=== PATIENT | male | born 1965 | race Caucasian/White ===

== ENCOUNTER 2017-05-21 09:20 | Emergency (ER) | payer SELFPAY ==
--- NOTE | 2017-05-21 09:46 | EDM.PDOC ---
ED HPI GENERAL MEDICAL PROBLEM - General Chief Complaint: Back Pain or Injury Stated Complaint: BACK PAIN FROM FALL Time Seen by Provider: 05/21/17 09:44 Source of Information: Reports: Patient - History of Present Illness INITIAL COMMENTS - FREE TEXT/NARRATIVE: HISTORY AND PHYSICAL: History of present illness: []Patient had a recent fall off of the latter, his head was at a height of 5 feet, his feet were on the first or second rung of the latter he fell back landing on his bottom denies head injury or loss of consciousness incident occurred 3 days prior back pain is rated 4 out of 10 nonradiating no footdrop or saddle anesthesia no bowel or urine symptoms Wrist pain unaffected above the wrist mildly tender over radial side full range of motion strength 5 out of 5 no redness warmth swelling no open lesion or bruise no snuffbox tenderness entire limb neurovascularly intact No fever nausea vomiting chills sweats no chest pain shortness breath headache dizziness or palpitation no bowel or urine symptoms Review of systems: As per history of present illness and below otherwise all systems reviewed and negative. Past medical history: As per history of present illness and as reviewed below otherwise noncontributory. Surgical history: As per history of present illness and as reviewed below otherwise noncontributory. Social history: No reported history of drug or alcohol abuse. Family history: As per history of present illness and as reviewed below otherwise noncontributory. Physical exam: HEENT: Atraumatic, normocephalic, pupils reactive, negative for conjunctival pallor or scleral icterus, mucous membranes moist, throat clear, neck supple, nontender, trachea midline. Lungs: Clear to auscultation, breath sounds equal bilaterally, chest nontender. Heart: S1S2, regular, negative for clicks, rubs, or JVD. Abdomen: Soft, nondistended, nontender. Negative for masses or hepatosplenomegaly. Negative for costovertebral tenderness. Pelvis: Stable nontender. Genitourinary: Deferred. Rectal: Deferred. Extremities: Atraumatic, negative for cords or calf pain. Neurovascular unremarkable. Neuro: Awake, alert, oriented. Cranial nerves II through XII unremarkable. Cerebellum unremarkable. Motor and sensory unremarkable throughout. Exam nonfocal. Diagnostics: []Right wrist complete Lumbar spine Therapeutics: Splint for wrist []Cataflam 50 mg by mouth 3 times a day #30 no refill Flexeril 10 mg by mouth 3 times a day when necessary #30 no refill Ice or heat whichever gains most benefit Follow-up with primary care in 2 weeks Impression: []Back pain/muscle spasm contusion Mild right wrist discomfort/sprain Definitive disposition and diagnosis as appropriate pending reevaluation and review of above. Right Lower Back Pain Score (Numeric/FACES): 8 - Related Data Allergies Allergy/AdvReac Type Severity Reaction Status Date / Time No Known Allergies Allergy Verified 03/26/15 23:06 Home Meds: Home Meds Lisinopril [Prinivil] 10 mg DAILY 05/21/17 [History] Past Medical History - Past Health History Medical/Surgical History: Denies Medical/Surgical History Cardiovascular History: Reports: Hypertension Social & Family History - Tobacco Use Smoking Status *Q: Never Smoker Second Hand Smoke Exposure: No - Caffeine Use Caffeine Use: Reports: Coffee - Recreational Drug Use Recreational Drug Use: No ED ROS GENERAL - Review of Systems Review Of Systems: ROS reveals no pertinent complaints other than HPI. ED EXAM, GENERAL - Physical Exam Exam: See Below Course - Vital Signs Last Recorded V/S: Last Vital Signs Temp 36.5 C 05/21/17 09:36 Pulse 79 05/21/17 09:36 Resp 18 05/21/17 09:36 BP 163/96 H 05/21/17 09:36 Pulse Ox 95 05/21/17 09:36 Departure - Departure Time of Disposition: 10:41 Disposition: Home, Self-Care 01 Condition: Good Clinical Impression: Spasm of lumbar paraspinous muscle, Wrist sprain - Discharge Information Referrals: PCP,None [Primary Care Provider] - Forms: ED Department Discharge Additional Instructions: Medications as prescribed Return if symptoms persist or worsen Heat or ice whichever gains most benefit 20 minute intervals 3 times daily Follow-up with primary care in 2 weeks for recheck The following information is given to patients seen in the emergency department who are being discharged to home. This information is to outline your options for follow-up care. We provide all patients seen in our emergency department with a follow-up referral. The need for follow-up, as well as the timing and circumstances, are variable depending upon the specifics of your emergency department visit. If you don't have a primary care physician on staff, we will provide you with a referral. We always advise you to contact your personal physician following an emergency department visit to inform them of the circumstance of the visit and for follow-up with them and/or the need for any referrals to a consulting specialist. The emergency department will also refer you to a specialist when appropriate. This referral assures that you have the opportunity for follow-up care with a specialist. All of these measure are taken in an effort to provide you with optimal care, which includes your follow-up. Under all circumstances we always encourage you to contact your private physician who remains a resource for coordinating your care. When calling for follow-up care, please make the office aware that this follow-up is from your recent emergency room visit. If for any reason you are refused follow-up, please contact the [facility] emergency department at and asked to speak to the emergency department charge nurse.
--- NOTE | 2017-05-21 10:29 | CR ---
EXAMINATION: Lumbar spine HISTORY: Pain COMPARISON: None TECHNIQUE: AP and lateral views FINDINGS: The lumbar spinal alignment is normal. The vertebral body heights and disc spaces appear w ell-maintained. There is no fracture or dislocation. The SI joints are symmetric. Early marginal ost eophytes are noted. IMPRESSION: Mild degenerative changes without acute findings.
--- NOTE | 2017-05-21 10:31 | CR ---
EXAMINATION: Right wrist HISTORY: Pain COMPARISON: None TECHNIQUE: 3 views FINDINGS/IMPRESSION: There is no acute osseous abnormality, dislocation, or fracture. Bone mineraliz ation and joint spaces appear normal. The radiocarpal alignment is preserved.
[2017-05-21 10:56] VITALS: BP 159/100
== END 2017-05-21 10:52 | disposition home or self-care (01) ==
LOC: MW.ED 09:20
DX: S63.501A Unspecified sprain of right wrist, initial encounter (principal); M62.830 Muscle spasm of back; W11.XXXA Fall on and from ladder, initial encounter; I10 Essential (primary) hypertension; Z79.899 Other long term (current) drug therapy
CPT/HCPCS: 72100; 72100-26; 73110-26-RT; 73110-RT; 99282; 99283

== ENCOUNTER 2017-06-06 10:50 | Emergency (ER) | payer SELFPAY ==
--- NOTE | 2017-06-06 11:17 | EDM.PDOC ---
ED HPI GENERAL MEDICAL PROBLEM - General Chief Complaint: Back Pain or Injury Stated Complaint: BACK PAIN Time Seen by Provider: 06/06/17 11:05 Source of Information: Reports: Patient History Limitations: Reports: No Limitations - History of Present Illness INITIAL COMMENTS - FREE TEXT/NARRATIVE: History of present illness: []Patient fell off a ladder couple weeks ago and was seen in the ER with negative x-rays. His pain has been getting better however he is concerned because his pain is still present and waxes and wanes today today. He denies any numbness or tingling or radiating pain and he has not had any new injuries. Review of systems: As per history of present illness and below otherwise all systems reviewed and negative. Past medical history: As per history of present illness and as reviewed below otherwise noncontributory. Surgical history: As per history of present illness and as reviewed below otherwise noncontributory. Social history: No reported history of drug or alcohol abuse. Family history: As per history of present illness and as reviewed below otherwise noncontributory. Physical exam: General: Well developed, well nourished in NAD HEENT: Atraumatic, normocephalic, pupils reactive, negative for conjunctival pallor or scleral icterus, mucous membranes moist, throat clear, neck supple, nontender, trachea midline. Lungs: Clear to auscultation, breath sounds equal bilaterally, chest nontender. Heart: S1S2, regular, negative for clicks, rubs, or JVD. Abdomen: Soft, nondistended, nontender. Negative for masses or hepatosplenomegaly. Negative for costovertebral tenderness. Pelvis: Stable nontender. Genitourinary: Deferred. Rectal: Deferred. Extremities: Atraumatic, negative for cords or calf pain. Neurovascular unremarkable. Neuro: Awake, alert, oriented. Cranial nerves II through XII unremarkable. Cerebellum unremarkable. Motor and sensory unremarkable throughout. Exam nonfocal. Diagnostics: [] Therapeutics: [] Impression: []Low back strain Plan: []Motrin and/or Tylenol continue to use ice and heat. Continue to walk as much as possible. He may go back to work on light duty Definitive disposition and diagnosis as appropriate pending reevaluation and review of above. - Related Data Allergies Allergy/AdvReac Type Severity Reaction Status Date / Time No Known Allergies Allergy Verified 03/26/15 23:06 Home Meds: Home Meds Lisinopril [Prinivil] 10 mg DAILY 05/21/17 [History] Past Medical History - Past Health History Medical/Surgical History: Denies Medical/Surgical History Cardiovascular History: Reports: Hypertension Social & Family History - Tobacco Use Smoking Status *Q: Never Smoker Second Hand Smoke Exposure: No - Caffeine Use Caffeine Use: Reports: Coffee - Recreational Drug Use Recreational Drug Use: No ED ROS GENERAL - Review of Systems Review Of Systems: See Below (See history of present illness) ED EXAM,LOWER BACK PAIN/INJURY - Physical Exam Exam: See Below (See history of present illness) Departure - Departure Time of Disposition: 11:15 Disposition: Home, Self-Care 01 Condition: Good Clinical Impression: Low back strain Qualifiers: Encounter type: subsequent encounter Qualified Code(s): S39.012D - Strain of muscle, fascia and tendon of lower back, subsequent encounter - Discharge Information Forms: ED Department Discharge Additional Instructions: The following information is given to patients seen in the emergency department who are being discharged to home. This information is to outline your options for follow-up care. We provide all patients seen in our emergency department with a follow-up referral. The need for follow-up, as well as the timing and circumstances, are variable depending upon the specifics of your emergency department visit. If you don't have a primary care physician on staff, we will provide you with a referral. We always advise you to contact your personal physician following an emergency department visit to inform them of the circumstance of the visit and for follow-up with them and/or the need for any referrals to a consulting specialist. The emergency department will also refer you to a specialist when appropriate. This referral assures that you have the opportunity for follow-up care with a specialist. All of these measure are taken in an effort to provide you with optimal care, which includes your follow-up. Under all circumstances we always encourage you to contact your private physician who remains a resource for coordinating your care. When calling for follow-up care, please make the office aware that this follow-up is from your recent emergency room visit. If for any reason you are refused follow-up, please contact the [facility] Emergency Department at and asked to speak to the emergency department charge nurse. Continue Motrin and/or Tylenol with ice and heat. [facility] [address] [id number]
[2017-06-06 12:54] VITALS: BP 121/85
== END 2017-06-06 11:30 | disposition home or self-care (01) ==
LOC: MW.ED 10:50
DX: S39.012D Strain of muscle, fascia and tendon of lower back, subsequent encounter (principal); I10 Essential (primary) hypertension; Z79.899 Other long term (current) drug therapy; W11.XXXD Fall on and from ladder, subsequent encounter
CPT/HCPCS: 99282

== ENCOUNTER 2017-11-02 17:25 | Emergency (ER) | payer SELFPAY ==
--- NOTE | 2017-11-02 18:23 | EDM.PDOC ---
ED HPI GENERAL MEDICAL PROBLEM - General Chief Complaint: Cardiovascular Problem Stated Complaint: BP ISSUES,OUT OF MEDICATION Time Seen by Provider: 11/02/17 18:21 Source of Information: Reports: Patient History Limitations: Reports: No Limitations - History of Present Illness INITIAL COMMENTS - FREE TEXT/NARRATIVE: History of present illness: []Patient has a history of high blood pressure and ran out of his lisinopril 3 days ago. He started hearing ringing in his ears was not able to check her blood pressure. He does not have a doctor here locally as requesting a med refill. He denies any chest pain, shortness of breath, headache, visual changes or dizziness. Patient's vital signs here are stable Review of systems: As per history of present illness and below otherwise all systems reviewed and negative. Past medical history: As per history of present illness and as reviewed below otherwise noncontributory. Surgical history: As per history of present illness and as reviewed below otherwise noncontributory. Social history: No reported history of drug or alcohol abuse. Family history: As per history of present illness and as reviewed below otherwise noncontributory. Physical exam: General: Well developed, well nourished in NAD HEENT: Atraumatic, normocephalic, pupils reactive, negative for conjunctival pallor or scleral icterus, mucous membranes moist, throat clear, neck supple, nontender, trachea midline. Lungs: Clear to auscultation, breath sounds equal bilaterally, chest nontender. Heart: S1S2, regular, negative for clicks, rubs, or JVD. Abdomen: Soft, nondistended, nontender. Negative for masses or hepatosplenomegaly. Negative for costovertebral tenderness. Pelvis: Stable nontender. Genitourinary: Deferred. Rectal: Deferred. Extremities: Atraumatic, negative for cords or calf pain. Neurovascular unremarkable. Neuro: Awake, alert, oriented. Cranial nerves II through XII unremarkable. Cerebellum unremarkable. Motor and sensory unremarkable throughout. Exam nonfocal. Diagnostics: [] Therapeutics: [] Impression: []Med refill Plan: []Lisinopril 10 mg daily follow-up with primary care Definitive disposition and diagnosis as appropriate pending reevaluation and review of above. - Related Data Allergies Allergy/AdvReac Type Severity Reaction Status Date / Time No Known Allergies Allergy Verified 11/02/17 18:00 Home Meds: Home Meds Lisinopril [Prinivil] 10 mg PO DAILY 05/21/17 [History] Lisinopril 10 mg PO DAILY #20 tablet 11/02/17 [Rx] Past Medical History - Past Health History Medical/Surgical History: Denies Medical/Surgical History HEENT History: Reports: None Cardiovascular History: Reports: Hypertension Respiratory History: Reports: None Gastrointestinal History: Reports: None Genitourinary History: Reports: None Musculoskeletal History: Reports: None Neurological History: Reports: None Psychiatric History: Reports: None Endocrine/Metabolic History: Reports: None Hematologic History: Reports: None Immunologic History: Reports: None Oncologic (Cancer) History: Reports: None Dermatologic History: Reports: None - Infectious Disease History Infectious Disease History: Reports: Chicken Pox, Mumps - Past Surgical History Head Surgeries/Procedures: Reports: None HEENT Surgical History: Reports: None Cardiovascular Surgical History: Reports: None Respiratory Surgical History: Reports: None GI Surgical History: Reports: None Male Surgical History: Reports: None Endocrine Surgical History: Reports: None Neurological Surgical History: Reports: None Musculoskeletal Surgical History: Reports: None Oncologic Surgical History: Reports: None Dermatological Surgical History: Reports: None Social & Family History - Family History Family Medical History: Noncontributory - Tobacco Use Smoking Status *Q: Never Smoker Second Hand Smoke Exposure: No - Caffeine Use Caffeine Use: Reports: Coffee - Recreational Drug Use Recreational Drug Use: No ED ROS GENERAL - Review of Systems Review Of Systems: See Below (See history of present illness) ED EXAM, GENERAL - Physical Exam Exam: See Below (See history of present illness) Course - Vital Signs Last Recorded V/S: Last Vital Signs Temp 96.6 F 11/02/17 18:01 Pulse 80 11/02/17 18:01 Resp 18 11/02/17 18:01 BP 136/74 11/02/17 18:01 Pulse Ox 95 11/02/17 18:01 Departure - Departure Time of Disposition: 18:23 Disposition: Home, Self-Care 01 Condition: Good Clinical Impression: Medication refill Prescriptions: Lisinopril 10 mg PO DAILY #20 tablet Referrals: PCP,None [Primary Care Provider] - Forms: ED Department Discharge Additional Instructions: The following information is given to patients seen in the emergency department who are being discharged to home. This information is to outline your options for follow-up care. We provide all patients seen in our emergency department with a follow-up referral. The need for follow-up, as well as the timing and circumstances, are variable depending upon the specifics of your emergency department visit. If you don't have a primary care physician on staff, we will provide you with a referral. We always advise you to contact your personal physician following an emergency department visit to inform them of the circumstance of the visit and for follow-up with them and/or the need for any referrals to a consulting specialist. The emergency department will also refer you to a specialist when appropriate. This referral assures that you have the opportunity for follow-up care with a specialist. All of these measure are taken in an effort to provide you with optimal care, which includes your follow-up. Under all circumstances we always encourage you to contact your private physician who remains a resource for coordinating your care. When calling for follow-up care, please make the office aware that this follow-up is from your recent emergency room visit. If for any reason you are refused follow-up, please contact the [facility] Emergency Department at and asked to speak to the emergency department charge nurse. Lisinopril as directed, follow up with a primary care for further prescription refills. [facility] [address] [place] [id number]
[2017-11-02 19:01] VITALS: BP 112/76
== END 2017-11-02 19:08 | disposition home or self-care (01) ==
LOC: MW.ED 17:25
DX: Z76.0 Encounter for issue of repeat prescription (principal); I10 Essential (primary) hypertension; Z79.899 Other long term (current) drug therapy
CPT/HCPCS: 99282; 99283

== ENCOUNTER 2019-10-12 10:18 | Emergency (ER) | payer MEDICAID, OTHER ==
--- NOTE | 2019-10-12 10:20 | EDM.PDOC ---
ED HPI GENERAL MEDICAL PROBLEM - General Chief Complaint: General Stated Complaint: HYPERTENSION Time Seen by Provider: 10/12/19 10:20 Source of Information: Reports: Patient History Limitations: Reports: No Limitations - History of Present Illness INITIAL COMMENTS - FREE TEXT/NARRATIVE: HISTORY AND PHYSICAL: History of present illness: Patient is a 54-year-old male who presents to the emergency room today with complaints of elevated blood pressure. He states he has a long standing history of hypertension and has taken lisinopril 10 mg daily over the past 4 years. He states that he has checked his blood pressure over the past several days and states he has noticed it in the 140s over 90s consistently. He is concerned that his medication may need to be adjusted. He states he is otherwise asymptomatic and has no complaints or concerns. Denies any dietary changes. Patient denies any fever, chills, headache, change in vision, syncope or near syncope. Denies any chest pain, back pain, shortness of breath or cough. Denies any GI or symptoms. patient has been eating and drinking appropriately. Review of systems: As per history of present illness and below otherwise all systems reviewed and negative. Past medical history: As per history of present illness and as reviewed below otherwise noncontributory. Surgical history: As per history of present illness and as reviewed below otherwise noncontributory. Social history: See social history for further information Family history: As per history of present illness and as reviewed below otherwise noncontributory. Physical exam: General: Well-developed and well-nourished 54-year-old male. Alert and oriented. Nontoxic-appearing and in no acute distress. HEENT: Atraumatic, normocephalic, pupils equal and reactive bilaterally, negative for conjunctival pallor or scleral icterus, mucous membranes moist, TMs normal bilaterally, throat clear, neck supple, nontender, trachea midline. No drooling or trismus noted. No meningeal signs. No hot potato voice noted. Lungs: Clear to auscultation, breath sounds equal bilaterally, chest nontender. Heart: S1S2, regular rate and rhythm without overt murmur Abdomen: Soft, nondistended, nontender. Negative for masses or costovertebral tenderness. Pelvis: Stable nontender. Skin: Intact, warm, dry. No lesions or rashes noted. Extremities: Atraumatic, moves all extremities per self without difficulty or deficits, negative for cords or calf pain. Neurovascular unremarkable. Neuro: Awake, alert, oriented. Cranial nerves II through XII unremarkable. Cerebellum unremarkable. Motor and sensory unremarkable throughout. Exam nonfocal. Notes: EKG shows no acute findings. Declines lab work at this time. He is asymptomatic. Will refill his Lisinopril and add the HCTZ. We made him an appointment to establish care with PCP and have further refills. Patient aware and supportive care measures were reviewed and discussed. Voices understanding and is agreeable to plan of care. Denies any further questions or concerns at this time. Diagnostics: EKG Therapeutics: None Prescription: Lisinopril/HCTZ (#14) Impression: Hypertension Plan: 1. Decrease processed food and sodium intake. Make sure you are drinking plenty of water. 2. Take your medication as prescribed. 3. You have a follow-up appointment with Dr. Michael on 10/21/2019 at 08:30 am. at [facility], here in the hospital building. 4. Return to the ED as needed and as discussed. Definitive disposition and diagnosis as appropriate pending reevaluation and review of above. - Related Data Allergies Allergy/AdvReac Type Severity Reaction Status Date / Time No Known Allergies Allergy Verified 10/12/19 10:27 Home Meds: Home Meds lisinopriL [Prinivil] 10 mg PO DAILY 05/21/17 [History] Lisinopril/Hydrochlorothiazide [Lisinopril-Hctz 10-12.5 mg Tab] 1 each PO DAILY #14 tablet 10/12/19 [Rx] Past Medical History - Past Health History Medical/Surgical History: Denies Medical/Surgical History HEENT History: Reports: None Cardiovascular History: Reports: Hypertension Respiratory History: Reports: None Gastrointestinal History: Reports: None Genitourinary History: Reports: None Musculoskeletal History: Reports: None Neurological History: Reports: None Psychiatric History: Reports: None Endocrine/Metabolic History: Reports: None Hematologic History: Reports: None Immunologic History: Reports: None Oncologic (Cancer) History: Reports: None Dermatologic History: Reports: None - Infectious Disease History Infectious Disease History: Reports: Chicken Pox, Mumps - Past Surgical History Head Surgeries/Procedures: Reports: None HEENT Surgical History: Reports: None Cardiovascular Surgical History: Reports: None Respiratory Surgical History: Reports: None GI Surgical History: Reports: None Male Surgical History: Reports: None Endocrine Surgical History: Reports: None Neurological Surgical History: Reports: None Musculoskeletal Surgical History: Reports: None Oncologic Surgical History: Reports: None Dermatological Surgical History: Reports: None Social & Family History - Family History Family Medical History: Noncontributory - Caffeine Use Caffeine Use: Reports: Coffee ED ROS GENERAL - Review of Systems Review Of Systems: Comprehensive ROS is negative, except as noted in HPI. ED EXAM, GENERAL - Physical Exam Exam: See Below (See dictation) Course - Vital Signs Last Recorded V/S: Last Vital Signs Temp 96.4 F 10/12/19 10:24 Pulse 77 10/12/19 10:24 Resp 18 10/12/19 10:24 BP 155/89 H 10/12/19 10:24 Pulse Ox 93 L 10/12/19 10:24 - Orders/Labs/Meds Orders: Active Orders 24 hr Category Date Time Status EKG Documentation Completion [RC] STAT Care 10/12/19 10:28 Active Departure - Departure Time of Disposition: 10:35 Disposition: Home, Self-Care 01 Clinical Impression: Hypertension Qualifiers: Hypertension type: essential hypertension Qualified Code(s): I10 - Essential ( primary) hypertension - Discharge Information Prescriptions: Lisinopril/Hydrochlorothiazide [Lisinopril-Hctz 10-12.5 mg Tab] 1 each PO DAILY #14 tablet Instructions: Hypertension, [id number] Referrals: PCP,None [Primary Care Provider] - Matti Michael MD [Physician] - 10/21/19 8:30 am (please check in at 8am. ) Forms: ED Department Discharge Additional Instructions: The following information is given to patients seen in the emergency department who are being discharged to home. This information is to outline your options for follow-up care. We provide all patients seen in our emergency department with a follow-up referral. The need for follow-up, as well as the timing and circumstances, are variable depending upon the specifics of your emergency department visit. If you don't have a primary care physician on staff, we will provide you with a referral. We always advise you to contact your personal physician following an emergency department visit to inform them of the circumstance of the visit and for follow-up with them and/or the need for any referrals to a consulting specialist. The emergency department will also refer you to a specialist when appropriate. This referral assures that you have the opportunity for follow-up care with a specialist. All of these measure are taken in an effort to provide you with optimal care, which includes your follow-up. Under all circumstances we always encourage you to contact your private physician who remains a resource for coordinating your care. When calling for follow-up care, please make the office aware that this follow-up is from your recent emergency room visit. If for any reason you are refused follow-up, please contact the [facility] Emergency Department at and asked to speak to the emergency department charge nurse. [facility] Primary Care: Dr Michael [address] [place] [address] [id number] [address] [id number] 1. Decrease processed food and sodium intake. Make sure you are drinking plenty of water. 2. Take your medication as prescribed. 3. You have a follow-up appointment with Dr. Michael on 10/21/2019 at 08:30 am at [facility], here in the hospital building. Further refills and medication adjustments through [facility]. 4. Return to the ED as needed and as discussed. Sepsis Event Note - Focused Exam Vital Signs: Vital Signs Temp Pulse Resp BP Pulse Ox 10/12/19 10:24 96.4 F 77 18 155/89 H 93 L Date Exam was Performed: 10/12/19 Time Exam was Performed: 10:40 - My Orders Last 24 Hours: My Active Orders 10/12/19 10:28 EKG Documentation Completion [RC] STAT - Assessment/Plan Last 24 Hours: My Active Orders 10/12/19 10:28 EKG Documentation Completion [RC] STAT
[2019-10-12 10:58] VITALS: BP 145/89; PULSE 80
== END 2019-10-12 10:53 | disposition home or self-care (01) ==
LOC: MW.ED 10:18
DX: I10 Essential (primary) hypertension (principal); Z79.899 Other long term (current) drug therapy
CPT/HCPCS: 93005; 99283; 99283-25

== ENCOUNTER 2020-01-10 12:15 | Emergency (ER) | payer MEDICAID ==
--- NOTE | 2020-01-10 13:38 | EDM.PDOC ---
ED HPI GENERAL MEDICAL PROBLEM - General Chief Complaint: Respiratory Problem Stated Complaint: SORE THROAT/CONGESTION Time Seen by Provider: 01/10/20 12:42 Source of Information: Reports: Patient History Limitations: Reports: No Limitations - History of Present Illness INITIAL COMMENTS - FREE TEXT/NARRATIVE: HISTORY AND PHYSICAL: History of present illness: Patient is a 54-year-old male who presents to the ED today with concern of nasal congestion, sore throat over the past 3 days. Patient states at times he will feel as if his nose is dripping down the back of his throat and has made him cough. Patient states his biggest symptom is the nasal congestion. Patient states she has a history of hypertension but denies any other health history. Patient denies any other symptoms or concerns Patient denies fever, chills, chest pain, shortness of breath. Denies headache, neck stiff ness, change in vision, syncope, or near syncope. Denies nausea, vomiting, abdominal pain, diarrhea, constipation, or dysuria. Has not noted any blood in urine or stool. Patient has been eating and drinking appropriately. Review of systems: As per history of present illness and below otherwise all systems reviewed and negative. Past medical history: As per history of present illness and as reviewed below otherwise noncontributory. Surgical history: As per history of present illness and as reviewed below otherwise noncontributory. Social history: See social history for further information Family history: As per history of present illness and as reviewed below otherwise noncontributory. Physical exam: General: Patient is alert, oriented, and in no acute distress. Patient sitting comfortably on exam table. HEENT: Atraumatic, normocephalic, pupils equal and reactive bilaterally, negative for conjunctival pallor or scleral icterus, mucous membranes moist, TMs normal bilaterally, throat erythematous without exudate, uvula midline, bilateral nasal congestion, neck supple, nontender, trachea midline. No drooling or trismus noted. No meningeal signs. No hot potato voice noted. Lungs: Clear to auscultation, breath sounds equal bilaterally, chest nontender. Heart: S1S2, regular rate and rhythm without overt murmur Abdomen: Soft, nondistended, nontender. Negative for masses or hepatosplenomegaly. Negative for costovertebral tenderness. Pelvis: Stable nontender. Genitourinary: Deferred. Rectal: Deferred. Skin: Intact, warm, dry. No lesions or rashes noted. Extremities: Atraumatic, negative for cords or calf pain. Neurovascular unremarkable. Neuro: Awake, alert, oriented. Cranial nerves II through XII unremarkable. Cerebellum unremarkable. Motor and sensory unremarkable throughout. Exam nonfocal. Notes: Discussed importance for follow-up with a primary care provider. Voices understanding and is agreeable to plan of care. Denies any further questions or concerns at this time. Diagnostics: Influenza, Strep Therapeutics: None Prescription: None Impression: Pharyngitis Nasal congestion Plan: 1. You can alternate ibuprofen and Tylenol as directed for pain and discomfort. 2. Follow-up with a primary care provider as discussed. Return to the ED as needed and as discussed. Definitive disposition and diagnosis as appropriate pending reevaluation and review of above. body aches Pain Score (Numeric/FACES): 6 - Related Data Allergies Allergy/AdvReac Type Severity Reaction Status Date / Time No Known Allergies Allergy Verified 10/12/19 10:27 Home Meds: Home Meds Lisinopril/Hydrochlorothiazide [Lisinopril-Hctz 10-12.5 mg Tab] 1 each PO DAILY #14 tablet 10/12/19 [Rx] Past Medical History - Past Health History Medical/Surgical History: Denies Medical/Surgical History HEENT History: Reports: None Cardiovascular History: Reports: Hypertension Respiratory History: Reports: None Gastrointestinal History: Reports: None Genitourinary History: Reports: None Musculoskeletal History: Reports: None Neurological History: Reports: None Psychiatric History: Reports: None Endocrine/Metabolic History: Reports: None Hematologic History: Reports: None Immunologic History: Reports: None Oncologic (Cancer) History: Reports: None Dermatologic History: Reports: None - Infectious Disease History Infectious Disease History: Reports: Chicken Pox, Measles - Past Surgical History Head Surgeries/Procedures: Reports: None HEENT Surgical History: Reports: None Cardiovascular Surgical History: Reports: None Respiratory Surgical History: Reports: None GI Surgical History: Reports: None Male Surgical History: Reports: None Endocrine Surgical History: Reports: None Neurological Surgical History: Reports: None Musculoskeletal Surgical History: Reports: None Oncologic Surgical History: Reports: None Dermatological Surgical History: Reports: None Social & Family History - Family History Family Medical History: Noncontributory - Tobacco Use Smoking Status *Q: Never Smoker - Caffeine Use Caffeine Use: Reports: Coffee - Recreational Drug Use Recreational Drug Use: No ED ROS GENERAL - Review of Systems Review Of Systems: Comprehensive ROS is negative, except as noted in HPI. ED EXAM, GENERAL - Physical Exam Exam: See Below (see dictation) Course - Vital Signs Last Recorded V/S: Last Vital Signs Temp 96.8 F L 01/10/20 12:52 Pulse 80 01/10/20 12:52 Resp 20 01/10/20 12:52 BP 174/107 H 01/10/20 12:52 Pulse Ox 97 01/10/20 12:52 - Orders/Labs/Meds Orders: Active Orders 24 hr Category Date Time Status STREP SCRN A RAPID W CULT CONF [RM] Stat Lab 01/10/20 13:58 Received Isolation [COMM] Routine Oth 01/10/20 12:16 Active Departure - Departure Time of Disposition: 14:14 Disposition: Home, Self-Care 01 Clinical Impression: Nasal congestion Pharyngitis Qualifiers: Pharyngitis/tonsillitis etiology: unspecified etiology Qualified Code(s): J02.9 - Acute pharyngitis, unspecified - Discharge Information Referrals: PCP,None [Primary Care Provider] - Forms: ED Department Discharge Additional Instructions: The following information is given to patients seen in the emergency department who are being discharged to home. This information is to outline your options for follow-up care. We provide all patients seen in our emergency department with a follow-up referral. The need for follow-up, as well as the timing and circumstances, are variable depending upon the specifics of your emergency department visit. If you don't have a primary care physician on staff, we will provide you with a referral. We always advise you to contact your personal physician following an emergency department visit to inform them of the circumstance of the visit and for follow-up with them and/or the need for any referrals to a consulting specialist. The emergency department will also refer you to a specialist when appropriate. This referral assures that you have the opportunity for follow-up care with a specialist. All of these measure are taken in an effort to provide you with optimal care, which includes your follow-up. Under all circumstances we always encourage you to contact your private physician who remains a resource for coordinating your care. When calling for follow-up care, please make the office aware that this follow-up is from your recent emergency room visit. If for any reason you are refused follow-up, please contact the [facility] Emergency Department at and asked to speak to the emergency department charge nurse. [facility] [address] [place] [address] [facility] [address] [place] [id number] 1. You can alternate ibuprofen and Tylenol as directed for pain and discomfort. 2. Follow-up with a primary care provider as discussed. Return to the ED as needed and as discussed. Sepsis Event Note - Evaluation Sepsis Screening Result: No Definite Risk - Focused Exam Vital Signs: Vital Signs Temp Pulse Resp BP Pulse Ox 01/10/20 12:52 96.8 F L 80 20 174/107 H 97 Date Exam was Performed: 01/10/20 Time Exam was Performed: 14:14 - My Orders Last 24 Hours: My Active Orders 01/10/20 12:16 Isolation [COMM] Routine 01/10/20 13:58 STREP SCRN A RAPID W CULT CONF [RM] Stat - Assessment/Plan Last 24 Hours: My Active Orders 01/10/20 12:16 Isolation [COMM] Routine 01/10/20 13:58 STREP SCRN A RAPID W CULT CONF [RM] Stat
[2020-01-10 14:33] VITALS: BP 152/99; PULSE 71
== END 2020-01-10 14:30 | disposition home or self-care (01) ==
LOC: MW.ED 12:15
DX: J02.9 Acute pharyngitis, unspecified (principal); R09.81 Nasal congestion; I10 Essential (primary) hypertension
CPT/HCPCS: 87081; 87804; 87880-QW; 99282; 99283

== ENCOUNTER 2020-06-27 09:32 | Emergency (ER) | payer BC, MEDICAID ==
[2020-06-27] MEDS ORDERED: Ibuprofen 400 MG Tab PO ONE (10:08)
--- NOTE | 2020-06-27 10:10 | EDM.PDOC ---
ED HPI GENERAL MEDICAL PROBLEM - General Chief Complaint: Cardiovascular Problem Stated Complaint: ELEVATED HIGH PRESSURE Time Seen by Provider: 06/27/20 09:35 Source of Information: Reports: Patient, Old Records History Limitations: Reports: No Limitations - History of Present Illness INITIAL COMMENTS - FREE TEXT/NARRATIVE: 54-year-old male with a past medical history of hypertension and prediabetes presenting for evaluation of elevated blood pressure, lightheadedness, and headache. Patient has been checking his blood pressure at home and noted that his systolic blood pressure has been running in the 150s to 160s over the past week or so. He reports intermittent mild lightheadedness over the past 4 to 5 days but has not experienced syncope. He also complains of a mild headache to the entirety of his head. He is concerned that the headache may be due to elevated blood pressure. He states that he has had similar headaches like this in the past, this does not seem to be an atypical presentation of headache for him. He denies any history of head trauma, anticoagulant or antiplatelet medication usage, visual disturbance, dysarthria, dysphasia, gait or balance problems, facial or extremity numbness or weakness, or neck pain. Denies any chest discomfort, shortness of breath, or extremity edema. Denies diarrhea, vomiting, or history of rectal bleeding. ROS: A 10-point review of systems was negative, except as noted in the HPI (or in the ROS section of this note). Past medical history: Reviewed, no additional pertinent history. Surgical history: Reviewed in system, no additional pertinent history. Social history: Reviewed in system, no additional pertinent history. Family history: Reviewed in system, no additional pertinent history. PHYSICAL EXAM Vital signs reviewed. Nursing notes reviewed. Constitutional: Awake, alert, non-distressed. Head: Normocephalic, atraumatic. Eyes: EOMI, conjunctiva normal, no discharge, no scleral icterus. Pupils 3 mm bilaterally. Ears, Nose, Throat: External ears and nose normal, moist oral mucosa. Cardiovascular: 2+ radial pulse, capillary refill less than 2 seconds. No carotid bruits bilaterally. No lower extremity edema. Pulmonary: normal work of breathing, no accessory muscle use. Abdomen/GI: nondistended Musculoskeletal: No deformities Integumentary: Appropriate color for ethnicity, warm, dry, no pallor or jaundice, no rash. Neurologic: Awake, alert, and oriented x3. Cranial nerves II through XII intact. No facial droop or dysarthria. No temporal artery tenderness. Supple neck with normal range of motion. No pronator drift. Normal afazuq-yxzs-lkvpnq and snwx-ye-rxik. No dysdiadochokinesia. 5/5 strength in all extremities. Sensation intact to light touch x4. Negative Romberg. Normal gait. Normal visual reed. Able to sit, stand, and ambulate without assistance. Psychiatric: Appropriate mood and affect, normal thought process. headache Pain Score (Numeric/FACES): 6 - Related Data Allergies Allergy/AdvReac Type Severity Reaction Status Date / Time No Known Allergies Allergy Verified 06/27/20 09:44 Home Meds: Home Meds Lisinopril/Hydrochlorothiazide [Lisinopril-Hctz 10-12.5 mg Tab] 1 each PO DAILY #14 tablet 10/12/19 [Rx] Past Medical History - Past Health History Medical/Surgical History: Denies Medical/Surgical History HEENT History: Reports: None Cardiovascular History: Reports: Hypertension Respiratory History: Reports: None Gastrointestinal History: Reports: None Genitourinary History: Reports: None Musculoskeletal History: Reports: None Neurological History: Reports: None Psychiatric History: Reports: None Endocrine/Metabolic History: Reports: None Hematologic History: Reports: None Immunologic History: Reports: None Oncologic (Cancer) History: Reports: None Dermatologic History: Reports: None - Infectious Disease History Infectious Disease History: Reports: Chicken Pox, Mumps - Past Surgical History Head Surgeries/Procedures: Reports: None HEENT Surgical History: Reports: None Cardiovascular Surgical History: Reports: None Respiratory Surgical History: Reports: None GI Surgical History: Reports: None Male Surgical History: Reports: None Endocrine Surgical History: Reports: None Neurological Surgical History: Reports: None Musculoskeletal Surgical History: Reports: None Oncologic Surgical History: Reports: None Dermatological Surgical History: Reports: None Social & Family History - Family History Family Medical History: Noncontributory - Tobacco Use Smoking Status *Q: Never Smoker Second Hand Smoke Exposure: No - Caffeine Use Caffeine Use: Reports: Coffee, Soda - Recreational Drug Use Recreational Drug Use: No ED ROS GENERAL - Review of Systems Review Of Systems: See Below ED EXAM, GENERAL - Physical Exam Exam: See Below EKG INTERPRETATION EKG Interpretation Comments: 12-Lead ECG Interpretation Acquired: 10:12 AM Rhythm: Sinus arrhythmia Rate: 68 bpm [place]: Normal Intervals: Normal Ectopy: None Ischemic Changes: None apparent RV Strain: No obvious RV strain pattern. ST Segments/T-Waves: No notable changes Interpretation: Unremarkable Course - Vital Signs Text/Narrative:: Patient hemodynamically stable, afebrile, well-appearing, looks nontoxic. Differential diagnosis includes but is not limited to: Asymptomatic hypertension, hypertensive emergency, benign headache, migraine, intracranial hemorrhage, subarachnoid hemorrhage, subdural hemorrhage, CVA, TIA, DIRECTOR [employer] jhon gnancy, etc. Mildly hypertensive on arrival, but well-appearing. Denies any chest discomfort or shortness of breath, no evidence of lower extremity edema. Headache symptoms seem quite mild. Patient does not have any photophobia and has no evidence of nuchal rigidity and my suspicion for subarachnoid hemorrhage is quite low. No focal neurologic deficits are noted. There are no red flag or alarm symptoms in the HPI or physical examination to warrant CT imaging at this point. Patient states that this type of headache is typical for him and that he has had headaches like this in the past. There is no history of any head trauma. Given these facts I do not feel that CT imaging of the head is warranted at this visit. Treated symptomatically with ibuprofen. Twelve-lead EKG shows no evidence of preexcitation, ectopy, arrhythmia, or ischemia. Did complain of some intermittent mild lightheadedness. No history of GI bleed, vomiting, or diarrhea. Low suspicion for anemia or volume depletion or electrolyte disturbance. So labs likely of low utility. Patient has no other symptoms to suggest a hypertensive emergency such as chest discomfort, shortness of breath, altered mental status, severe headache, or extremity edema to warrant laboratory studies and additional work-up can be deferred to a primary care appointment. Plan: Patient is stable to discharge home with outpatient primary care clinic follow-up. Strict emergency department return precautions were provided, patient indicated understanding. All questions were answered prior to departure. Discharged in good condition. Last Recorded V/S: Last Vital Signs Temp 35.7 C L 06/27/20 09:41 Pulse 62 06/27/20 10:24 Resp 18 06/27/20 10:24 BP 140/83 06/27/20 10:24 Pulse Ox 95 06/27/20 10:24 - Orders/Labs/Meds Orders: Active Orders 24 hr Category Date Time Status EKG 12 Lead [EKG Documentation Completion] [RC] STAT Care 06/27/20 10:08 Active Meds: Medications Discontinued Medications Generic Name Dose Route Start Last Admin Trade Name Khushboo PRN Reason Stop Dose Admin Ibuprofen 400 mg 06/27/20 10:08 06/27/20 10:13 Motrin PO 06/27/20 10:09 400 mg ONETIME ONE Administration Departure - Departure Time of Disposition: 10:10 Disposition: Home, Self-Care 01 Condition: Good Clinical Impression: Asymptomatic hypertension, Intermittent lightheadedness Headache Qualifiers: Headache type: other headache syndrome Qualified Code(s): G44.89 - Other headache syndrome Instructions: General Headache Without Cause, Managing Your Hypertension, Hypertension, Adult Referrals: [facility] - [facility] [Provider Group] - 1 Week (For follow-up of hypertension and headaches.) Forms: ED Department Discharge Additional Instructions: You were seen in the emergency department for elevated blood pressure, lightheadedness, and headaches. Your blood pressure is not dangerously high at the moment and we do not need to change your current blood pressure medication regimen, this is best managed by a family medicine physician in their clinic. I would like for you to set up a follow-up appointment at our family medicine clinic in 1 to 2 weeks for reevaluation and for further management of your high blood pressure and prediabetes. We did discuss that at this point your headache seems to be quite mild and I do not think that a CT scan of your head is warranted at the moment given that you have had headaches like this in the past. I recommend [id number] extra strength acetaminophen (1000 mg every 6 hours) and ibuprofen (400 mg every 6 hours) to help treat your pain. Warning signs to come back to the ER include worsening headache, vision changes, slurred speech, difficulty speaking or swallowing, numbness or weakness of your face, arm, or leg, chest pain, shortness of breath, swelling to your limbs, or any other new or concerning symptoms. Please return the emergency department immediately if your symptoms worsen or if you feel worse. Thank you for choosing the [facility] emergency department in [place] for your medical needs today. It was a pleasure caring for you. The following information is given to patients seen in the emergency department who are being discharged. This information is to outline your options for follow-up care. We provide all patients seen in our emergency department with a follow-up referral. The need for follow-up, as well as the timing and circumstances, are variable depending upon the specifics of your emergency department visit. If you don't have a primary care physician on staff, we will provide you with a referral. We always advise you to contact your personal physician following an emergency department visit to inform them of the circumstance of the visit and for follow-up with them and/or the need for any referrals to a consulting specialist. The emergency department will also refer you to a specialist when appropriate. This referral assures that you have the opportunity for follow-up care with a specialist. All of these measure are taken in an effort to provide you with optimal care, which includes your follow-up. Under all circumstances we always encourage you to contact your private physician who remains a resource for coordinating your care. When calling for follow-up care, please make the office aware that this follow-up is from your recent emergency room visit. If for any reason you are refused follow-up, please contact the [facility] Emergency Department at and asked to speak to the emergency department charge nurse. If you do not have a primary care physician that is caring for you, you can contact these clinics below to set up an appointment to establish care: [facility] - Primary Care [address] [place] [id number] [facility] [address] [place] [address] Sepsis Event Note (ED) - Evaluation Sepsis Screening Result: No Definite Risk - Focused Exam Vital Signs: Vital Signs Temp Pulse Resp BP Pulse Ox 06/27/20 10:24 62 18 140/83 95 06/27/20 09:41 35.7 C L 76 18 157/98 H 96 - My Orders Last 24 Hours: My Active Orders 06/27/20 10:08 EKG 12 Lead [EKG Documentation Completion] [RC] STAT - Assessment/Plan Last 24 Hours: My Active Orders 06/27/20 10:08 EKG 12 Lead [EKG Documentation Completion] [RC] STAT
[2020-06-27 10:25] VITALS: BP 140/83; PULSE 62
== END 2020-06-27 10:25 | disposition home or self-care (01) ==
LOC: MW.ED 09:32
DX: I10 Essential (primary) hypertension (principal); G44.89 Other headache syndrome
CPT/HCPCS: 93005; 99283; A9270

== ENCOUNTER 2020-09-08 19:14 | Emergency (ER) | payer OTHER, BC ==
[2020-09-08] MEDS ORDERED: Acetaminophen/HYDROcodone 325-7.5 MG Tab PO STA (19:42)
--- NOTE | 2020-09-08 19:45 | EDM.PDOC ---
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 He fell backwards and landed on his hand left side outstretched behind him. He has severe pain in the left wrist. He is right-handed. He does not have any significant medical problems other than treatment for hypertension. The pain is severe worse with movement and worse when it is touched. He has no neurologic or functional deficit in the left upper extremity. Review of systems: As per history of present illness and below otherwise all systems reviewed and negative. Past medical history: As per history of present illness and as reviewed below otherwise noncontributory. Surgical history: As per history of present illness and as reviewed below otherwise noncontributory. Social history: No reported history of drug or alcohol abuse. Family history: As per history of present illness and as reviewed below otherwise noncontributo ry. Physical exam: Constitutional - well developed, well-nourished and in no acute distress HEENT - normocephalic, no evidence of trauma - external nose and mouth normal - no mass in neck and no JVD - mucosae moist EYES - full EOM, PERRL, no icterus - no evidence of inflammation, injection, or drainage Respiratory - no respiratory distress, equal bilateral expansion, lungs clear to auscultation and no abnormal lung sounds Cardiovascular - Regular Rhythm with S1 and S2 appreciated and no murmur, gallop or rub. GI - abdomen soft without distension or organomegaly - normal bowel sounds - no guard or rebound Musculoskeletal Marked swelling radial side of the distal left wrist, the proximal left hand. Knee anatomic snuffbox is involved in the area of swelling. This is exquisitely tender. Distal motor function is intact. Distal capillary refill is normal. Distal sensation is intact. No gross deformity of long bones or joints - no tenderness, swelling or edema Neurologic - Alert and oriented times four - CN II-XII grossly intact - motor sensory and coordination symmetrically normal Psychiatric - appropriate mood and affect with normal thought content Hematologic - No petechiae or purpura - mucosa appropriate color and sclera not pale - normal nail bed color and refill Integument - no rash or evidence of trauma - normal turgor Diagnostics: [] Therapeutics: [] Impression: [] Plan: [] Definitive disposition and diagnosis as appropriate pending reevaluation and review of above. left wrist Pain Score (Numeric/FACES): 9 - Related Data Allergies Allergy/AdvReac Type Severity Reaction Status Date / Time No Known Allergies Allergy Verified 09/08/20 19:20 Home Meds: Home Meds Lisinopril/Hydrochlorothiazide [Lisinopril-Hctz 10-12.5 mg Tab] 1 each PO DAILY #14 tablet 10/12/19 [Rx] Acetaminophen/HYDROcodone [Odanah 325-7.5 MG] 1 tab PO Q4H PRN #12 tab 09/08/20 [Rx] metFORMIN [Glucophage] 500 mg PO BIDMEALS 09/08/20 [History] Past Medical History - Past Health History Medical/Surgical History: Denies Medical/Surgical History HEENT History: Reports: None Cardiovascular History: Reports: Hypertension Respiratory History: Reports: None Gastrointestinal History: Reports: None Genitourinary History: Reports: None Musculoskeletal History: Reports: None Neurological History: Reports: None Psychiatric History: Reports: None Endocrine/Metabolic History: Reports: None, Diabetes, Type II Hematologic History: Reports: None Immunologic History: Reports: None Oncologic (Cancer) History: Reports: None Dermatologic History: Reports: None - Infectious Disease History Infectious Disease History: Reports: Chicken Pox, Measles, Mumps - Past Surgical History Head Surgeries/Procedures: Reports: None HEENT Surgical History: Reports: None Cardiovascular Surgical History: Reports: None Respiratory Surgical History: Reports: None GI Surgical History: Reports: None Male Surgical History: Reports: None Endocrine Surgical History: Reports: None Neurological Surgical History: Reports: None Musculoskeletal Surgical History: Reports: None Oncologic Surgical History: Reports: None Dermatological Surgical History: Reports: None Social & Family History - Family History Family Medical History: No Pertinent Family History - Tobacco Use Tobacco Use Status *Q: Never Tobacco User - Caffeine Use Caffeine Use: Reports: Coffee, Soda - Recreational Drug Use Recreational Drug Use: No Review of Systems - Review of Systems Review Of Systems: Comprehensive ROS is negative, except as noted in HPI. ED EXAM, GENERAL - Physical Exam Exam: See Below Free Text/Narrative:: I physical exam as in the HPI Course - Vital Signs Text/Narrative:: 3 reveals a fracture of the distal radius which is not significantly displaced and there is no significant dislocation at the wrist joint. The patient does have tenderness and swelling over the anatomic snuffbox so the splinting will involve a thumb spica and follow-up with Ortho advised. Neurovascular integrity verified after the splint. Last Recorded V/S: Last Vital Signs Temp 36.3 C 09/08/20 19:23 Pulse 79 09/08/20 19:23 Resp 18 09/08/20 19:23 BP 165/86 H 09/08/20 19:23 Pulse Ox 97 09/08/20 19:23 - Orders/Labs/Meds Orders: Active Orders 24 hr Category Date Time Status DME for Discharge [COMM] Stat Oth 09/08/20 20:26 Ordered Meds: Medications Discontinued Medications Generic Name Dose Route Start Last Admin Trade Name Freq PRN Reason Stop Dose Admin Hydrocodone Bitart/Acetaminophen 1 tab 09/08/20 19:42 09/08/20 20:10 Odanah 325-7.5 Mg PO 09/08/20 19:43 1 tab STAT STA Administration Departure - Departure Time of Disposition: 20:31 Disposition: Home, Self-Care 01 Condition: Good Clinical Impression: Fracture of radius - Discharge Information Prescriptions: Acetaminophen/HYDROcodone [Odanah 325-7.5 MG] 1 tab PO Q4H PRN #12 tab PRN Reason: Pain Instructions: Cast or Splint Care, Adult, [id number], Radial Fracture Referrals: PCP,None [Primary Care Provider] - Devin Jefferson MD [Physician] - Forms: ED Department Discharge Additional Instructions: [facility] - [facility] [address], [address] [place] [address] The following information is given to patients seen in the emergency department who are being discharged to home. This information is to outline your options for follow-up care. We provide all patients seen in our emergency department with a follow-up referral. The need for follow-up, as well as the timing and circumstances, are variable depending upon the specifics of your emergency department visit. If you don't have a primary care physician on staff, we will provide you with a referral. We always advise you to contact your personal physician following an emergency department visit to inform them of the circumstance of the visit and for follow-up with them and/or the need for any referrals to a consulting specialist. The emergency department will also refer you to a specialist when appropriate. This referral assures that you have the opportunity for follow-up care with a specialist. All of these measure are taken in an effort to provide you with optimal care, which includes your follow-up. Under all circumstances we always encourage you to contact your private physician who remains a resource for coordinating your care. When calling for follow-up care, please make the office aware that this follow-up is from your recent emergency room visit. If for any reason you are refused follow-up, please contact the [facility] Emergency Department at and asked to speak to the emergency department charge nurse. Sepsis Event Note (ED) - Evaluation Sepsis Screening Result: No Definite Risk - Focused Exam Vital Signs: Vital Signs Temp Pulse Resp BP Pulse Ox 09/08/20 19:23 36.3 C 79 18 165/86 H 97 - My Orders Last 24 Hours: My Active Orders 09/08/20 20:26 DME for Discharge [COMM] Stat - Assessment/Plan Last 24 Hours: My Active Orders 09/08/20 20:26 DME for Discharge [COMM] Stat
--- NOTE | 2020-09-08 20:17 | CR ---
Indication: Fall, injury Comparison: None available. Technique: AP, Lateral, and Oblique views left wrist were obtained Findings: There is a minimally displaced fracture of the distal radius. There is mild degenerative change of the radiocarpal joint. There is mild to moderate carpal soft tissue swelling. Impression: Minimally displaced, impacted fracture of the distal radius with associated soft tissue swelling. Dictated by Solomon Green MD @ Sep 08 2020 8:13PM Signed by Dr. Solomon Green @ Sep 08 2020 8:15PM
[2020-09-08 20:49] VITALS: BP 148/92; PULSE 66
== END 2020-09-08 20:57 | disposition home or self-care (01) ==
LOC: MW.ED 19:14
DX: S52.502A Unspecified fracture of the lower end of left radius, initial encounter for closed fracture (principal); I10 Essential (primary) hypertension; E11.9 Type 2 diabetes mellitus without complications; Z79.899 Other long term (current) drug therapy; W00.0XXA Fall on same level due to ice and snow, initial encounter; Y92.89 Other specified places as the place of occurrence of the external cause; Y99.0 Civilian activity done for income or pay
CPT/HCPCS: 73110; 99283; A9270; 29515

== ENCOUNTER 2020-11-21 09:55 | Emergency (ER) | payer BC, OTHER ==
--- NOTE | 2020-11-21 11:00 | EDM.PDOC ---
ED HPI GENERAL MEDICAL PROBLEM - General Chief Complaint: General Stated Complaint: ARM AND POISSIBLE COVID SYMPTOMS Time Seen by Provider: 11/21/20 10:18 Source of Information: Reports: Patient History Limitations: Reports: No Limitations - History of Present Illness INITIAL COMMENTS - FREE TEXT/NARRATIVE: HISTORY AND PHYSICAL: History of present illness: Patient is a 55-year-old male who presents emergency room today with concern of sore throat and slight cough x1 day. Patient states that he is concerned about COVID-19 infection. Patient states that since he is here he would like to have his left wrist evaluated. Patient states that he had an ulnar fracture in July 2020 and was just cleared to use his wrist by his orthopedic surgeon, Dr. Jefferson/Dr. Santana. Patient states that he has been cleared for a few days now but notes that he has had increasing discomfort of his left wrist with using it. Patient denies any new trauma or injury to the left wrist. Patient denies any other symptoms or concerns. Patient denies fever, chills, chest pain, shortness of breath, or cough. Denies headache, neck stiff ness, change in vision, syncope, or near syncope. Denies nausea, vomiting, abdominal pain, diarrhea, constipation, or dysuria. Has not noted any blood in urine or stool. Patient has been eating and drinking appropriately. Review of systems: As per history of present illness and below otherwise all systems reviewed and negative. Past medical history: As per history of present illness and as reviewed below otherwise noncontributory. Surgical history: As per history of present illness and as reviewed below otherwise noncontributory. Social history: See social history for further information Family history: As per history of present illness and as reviewed below otherwise noncontributory. Physical exam: General: Patient is alert, oriented, and in no acute distress. Patient sitting comfortably on exam table. Vitals stable and reviewed by me. HEENT: Atraumatic, normocephalic, pupils equal and reactive bilaterally, negative for conjunctival pallor or scleral icterus, mucous membranes moist, TMs normal bilaterally, throat clear, uvula midline, neck supple, nontender, trachea midline. No drooling or trismus noted. No meningeal signs. No hot potato voice noted. Lungs: Clear to auscultation, breath sounds equal bilaterally, chest nontender. Heart: S1S2, regular rate and rhythm without overt murmur Abdomen: Soft, nondistended, nontender. Negative for masses or hepatosplenomegaly. Negative for costovertebral tenderness. Pelvis: Stable nontender. Genitourinary: Deferred. Rectal: Deferred. Skin: Intact, warm, dry. No lesions or rashes noted. Extremities: No obvious deformity of the left upper extremity. Patient does have mild pain with palpation of the distal ulna/radius with positive Phalen and Tinel sign of the left upper extremity. Patient has intact sensation to light and deep touch of the left upper extremity with capillary refill less than 2 seconds. Otherwise, atraumatic, negative for cords or calf pain. Neurovascular unremarkable. Neuro: Awake, alert, oriented. Cranial nerves II through XII unremarkable. Cerebellum unremarkable. Motor and sensory unremarkable throughout. Exam nonfocal. Notes: Signs and symptoms that would prompt return to the ED thoroughly discussed with patient. Discussed the importance for following up with his PCP and orthopedic provider. Voices understanding and is agreeable to plan of care. Denies any further questions or concerns at this time. Diagnostics: COVID19 testing offered but patient declines as he prefers a throat swab rather than nasopharyngeal swab, Strep Therapeutics: None (Patient has wrist splint available to him) Prescription: None Impression: Pharyngitis Carpal tunnel, left Plan: 1. Use cough drops and/or other over the counter medications as needed for throat discomfort as discussed. Drink small but frequent sips of fluid to prevent dehydration. 2. Alternate Ibuprofen and Tylenol as directed for pain and discomfort. 3. Follow up with your primary care provider and orthopedic provider as discussed. 4. Return to the ED as needed and as discussed. Use the wrist splint you have at home as discussed. Definitive disposition and diagnosis as appropriate pending reevaluation and review of above. Left wrist Pain Score (Numeric/FACES): 6 - Related Data Allergies Allergy/AdvReac Type Severity Reaction Status Date / Time No Known Allergies Allergy Verified 09/08/20 19:20 Home Meds: Home Meds Lisinopril/Hydrochlorothiazide [Lisinopril-Hctz 10-12.5 mg Tab] 1 each PO DAILY #14 tablet 10/12/19 [Rx] metFORMIN [Glucophage] 1,000 mg PO DAILY 09/08/20 [History] Past Medical History - Past Health History Medical/Surgical History: Denies Medical/Surgical History HEENT History: Reports: None Cardiovascular History: Reports: Hypertension Respiratory History: Reports: None Gastrointestinal History: Reports: None Genitourinary History: Reports: None Musculoskeletal History: Reports: None Neurological History: Reports: None Psychiatric History: Reports: None Endocrine/Metabolic History: Reports: None, Diabetes, Type II Hematologic History: Reports: None Immunologic History: Reports: None Oncologic (Cancer) History: Reports: None Dermatologic History: Reports: None - Infectious Disease History Infectious Disease History: Reports: Chicken Pox, Measles, Mumps - Past Surgical History Head Surgeries/Procedures: Reports: None HEENT Surgical History: Reports: None Cardiovascular Surgical History: Reports: None Respiratory Surgical History: Reports: None GI Surgical History: Reports: None Male Surgical History: Reports: None Endocrine Surgical History: Reports: None Neurological Surgical History: Reports: None Musculoskeletal Surgical History: Reports: None Oncologic Surgical History: Reports: None Dermatological Surgical History: Reports: None Social & Family History - Family History Family Medical History: No Pertinent Family History - Tobacco Use Tobacco Use Status *Q: Never Tobacco User - Caffeine Use Caffeine Use: Reports: Coffee, Soda ED ROS GENERAL - Review of Systems Review Of Systems: Comprehensive ROS is negative, except as noted in HPI. ED EXAM, GENERAL - Physical Exam Exam: See Below (see dictation) Course - Vital Signs Last Recorded V/S: Last Vital Signs Temp 96.4 F L 11/21/20 10:06 Pulse 77 11/21/20 11:28 Resp 16 11/21/20 11:28 BP 140/81 11/21/20 11:28 Pulse Ox 94 L 11/21/20 11:28 - Orders/Labs/Meds Labs: Laboratory Tests 11/21/20 Range/Units 10:37 Group A Strep (PCR) NOT DETECTED (NOT DETECT) Departure - Departure Time of Disposition: 14:16 Disposition: Home, Self-Care 01 Clinical Impression: Carpal tunnel syndrome of left wrist Pharyngitis Qualifiers: Pharyngitis/tonsillitis etiology: unspecified etiology Qualified Code(s): J02.9 - Acute pharyngitis, unspecified - Discharge Information Instructions: Carpal Tunnel Syndrome, [id number], Pharyngitis, [id number] Referrals: PCP,Unobtain [Primary Care Provider] - Forms: ED Department Discharge Additional Instructions: The following information is given to patients seen in the emergency department who are being discharged to home. This information is to outline your options for follow-up care. We provide all patients seen in our emergency department with a follow-up referral. The need for follow-up, as well as the timing and circumstances, are variable depending upon the specifics of your emergency department visit. If you don't have a primary care physician on staff, we will provide you with a referral. We always advise you to contact your personal physician following an emergency department visit to inform them of the circumstance of the visit and for follow-up with them and/or the need for any referrals to a consulting specialist. The emergency department will also refer you to a specialist when appropriate. This referral assures that you have the opportunity for follow-up care with a specialist. All of these measure are taken in an effort to provide you with optimal care, which includes your follow-up. Under all circumstances we always encourage you to contact your private physician who remains a resource for coordinating your care. When calling for follow-up care, please make the office aware that this follow-up is from your recent emergency room visit. If for any reason you are refused follow-up, please contact the [facility] Emergency Department at and asked to speak to the emergency department charge nurse. [facility] Primary Care [address] [place] [id number] [facility] Specialty Care - Orthopedic Clinic Professional Building [address], [address] [place] [address] 1. Use cough drops and/or other over the counter medications as needed for throat discomfort as discussed. Drink small but frequent sips of fluid to prevent dehydration. 2. Alternate Ibuprofen and Tylenol as directed for pain and discomfort. 3. Follow up with your primary care provider and orthopedic provider as discussed. 4. Return to the ED as needed and as discussed. Use the wrist splint you have at home as discussed. Sepsis Event Note (ED) - Evaluation Sepsis Screening Result: No Definite Risk - Focused Exam Vital Signs: Vital Signs Temp Pulse Resp BP Pulse Ox 11/21/20 11:28 77 16 140/81 94 L 11/21/20 10:06 96.4 F L 78 16 154/86 H 97
[2020-11-21 11:29] VITALS: BP 140/81; PULSE 77
== END 2020-11-21 11:29 | disposition home or self-care (01) ==
LOC: MW.ED 09:55
DX: J02.9 Acute pharyngitis, unspecified (principal); G56.02 Carpal tunnel syndrome, left upper limb; I10 Essential (primary) hypertension; E11.9 Type 2 diabetes mellitus without complications; Z79.899 Other long term (current) drug therapy
CPT/HCPCS: 87651-QW; 99283

== ENCOUNTER 2021-10-03 08:23 | Emergency (ER) | payer OTHER ==
--- NOTE | 2021-10-03 08:57 | EDM.PDOC ---
ED HPI GENERAL MEDICAL PROBLEM - General Chief Complaint: ENT Problem Stated Complaint: CANT SWALLOW Time Seen by Provider: 10/03/21 08:38 Source of Information: Reports: Patient History Limitations: Reports: No Limitations - History of Present Illness INITIAL COMMENTS - FREE TEXT/NARRATIVE: Patient is a 56-year-old male who presented today for tongue injury. Patient states that he was eating yesterday when he accidentally bit the left side of his tongue. States that he knows at times follow-up was slightly painful. States that throughout the day it was difficult for him to eat and chew due to his tongue. States that he tried to apply some ice to it but also noticed that it was affecting his speech as well. Patient mentioned to the triage that he had difficulty swallowing his neck that he has difficulty swallowing has difficulty chewing and eating his food due to his tongue being painful. He otherwise has no other symptoms. Oral/Mouth Pain Score (Numeric/FACES): 8 - Related Data Allergies Allergy/AdvReac Type Severity Reaction Status Date / Time No Known Allergies Allergy Verified 10/03/21 08:35 Home Meds: Home Meds Lisinopril/Hydrochlorothiazide [Lisinopril-Hctz 10-12.5 mg Tab] 1 each PO DAILY #14 tablet 10/12/19 [Rx] metFORMIN [Glucophage] 1,000 mg PO DAILY 09/08/20 [History] Past Medical History - Past Health History Medical/Surgical History: Denies Medical/Surgical History HEENT History: Reports: None Cardiovascular History: Reports: Hypertension Respiratory History: Reports: None Gastrointestinal History: Reports: None Genitourinary History: Reports: None Musculoskeletal History: Reports: None Neurological History: Reports: None Psychiatric History: Reports: None Endocrine/Metabolic History: Reports: None, Diabetes, Type II Hematologic History: Reports: None Immunologic History: Reports: None Oncologic (Cancer) History: Reports: None Dermatologic History: Reports: None - Infectious Disease History Infectious Disease History: Reports: Chicken Pox, Measles, Mumps - Past Surgical History Head Surgeries/Procedures: Reports: None HEENT Surgical History: Reports: None Cardiovascular Surgical History: Reports: None Respiratory Surgical History: Reports: None GI Surgical History: Reports: None Male Surgical History: Reports: None Endocrine Surgical History: Reports: None Neurological Surgical History: Reports: None Musculoskeletal Surgical History: Reports: None Oncologic Surgical History: Reports: None Dermatological Surgical History: Reports: None Social & Family History - Family History Family Medical History: No Pertinent Family History - Tobacco Use Second Hand Smoke Exposure: No - Caffeine Use Caffeine Use: Reports: None - Recreational Drug Use Recreational Drug Use: No ED ROS ENT - Review of Systems Review Of Systems: See Below Constitutional: Reports: No Symptoms HEENT: Reports: No Symptoms Respiratory: Reports: No Symptoms Endocrine: Reports: No Symptoms GI/Abdominal: Reports: No Symptoms : Reports: No Symptoms Musculoskeletal: Reports: No Symptoms Skin: Reports: No Symptoms Neurological: Reports: No Symptoms Psychiatric: Reports: No Symptoms Hematologic/Lymphatic: Reports: No Symptoms Immunologic: Reports: No Symptoms ED EXAM, ENT - Physical Exam Exam: See Below Exam Limited By: No Limitations General Appearance: Alert, WD/WN, No Apparent Distress Eye Exam: Bilateral Eye: EOMI Mouth/Throat: Tongue Swelling Head: Atraumatic Neck: Normal Inspection Respiratory/Chest: No Respiratory Distress Cardiovascular: Normal Peripheral Pulses GI/Abdominal: Normal Bowel Sounds Extremities: Normal Inspection Neurological: Alert, Oriented, Normal Cognition, Normal Gait Course - Vital Signs Last Recorded V/S: Last Vital Signs Temp 97.5 F 10/03/21 08:32 Pulse 65 10/03/21 08:32 Resp 20 10/03/21 08:32 BP 149/81 H 10/03/21 08:32 Pulse Ox 96 10/03/21 08:32 Departure - Departure Time of Disposition: 08:55 Disposition: Home, Self-Care 01 Condition: Good Clinical Impression: Hematoma of tongue - Discharge Information *PRESCRIPTION DRUG MONITORING PROGRAM REVIEWED*: Not Applicable *COPY OF PRESCRIPTION DRUG MONITORING REPORT IN PATIENT PARVEZ: Not Applicable Instructions: Hematoma, [id number] Additional Instructions: You were seen today for pain and swelling to your tongue. This I have an acute bit the left side of your tongue. This looks to be a tongue hematoma which is just some blood that accumulated inside your tongue. Your body should reabsorb this. Recommend continue to try to ice to the area use peroxide mouthwash and use Motrin as well. If you have any other concerning signs or symptoms please feel free to return to the ED or follow-up with your primary care physician. The following information is given to patients seen in the emergency department who are being discharged to home. This information is to outline your options for follow-up care. We provide all patients seen in our emergency department with a follow-up referral. The need for follow-up, as well as the timing and circumstances, are variable depending upon the specifics of your emergency department visit. If you don't have a primary care physician on staff, we will provide you with a referral. We always advise you to contact your personal physician following an emergency department visit to inform them of the circumstance of the visit and for follow-up with them and/or the need for any referrals to a consulting specialist. The emergency department will also refer you to a specialist when appropriate. This referral assures that you have the opportunity for follow-up care with a specialist. All of these measure are taken in an effort to provide you with optimal care, which includes your follow-up. Under all circumstances we always encourage you to contact your private physician who remains a resource for coordinating your care. When calling for follow-up care, please make the office aware that this follow-up is from your recent emergency room visit. If for any reason you are refused follow-up, please contact the [facility] Emergency Department at and asked to speak to the emergency department charge nurse. Please follow up with your primary care physician. If you do not have a primary care physician, see below: [facility] Primary Care [address] [place] [id number] [facility] [address] [place] [id number] Sepsis Event Note (ED) - Evaluation Sepsis Screening Result: No Definite Risk - Focused Exam Vital Signs: Vital Signs Temp Pulse Resp BP Pulse Ox 10/03/21 08:32 97.5 F 65 20 149/81 H 96 - Assessment/Plan Plan: Patient is a 56-year-old male who presents today for tongue pain. Patient but the left side of his tongue has some swelling on exam. The tongue is not diffusely swollen there is no signs of infection. Patient instructed to use peroxide mouthwash ice and NSAIDs as needed.
[2021-10-03 09:32] VITALS: BP 139/82; PULSE 62
== END 2021-10-03 09:30 | disposition home or self-care (01) ==
LOC: MW.ED 08:23
DX: S00.532A Contusion of oral cavity, initial encounter (principal); I10 Essential (primary) hypertension; E11.9 Type 2 diabetes mellitus without complications; Z79.84 Long term (current) use of oral hypoglycemic drugs; Z79.899 Other long term (current) drug therapy; X58.XXXA Exposure to other specified factors, initial encounter
CPT/HCPCS: 99283

== ENCOUNTER 2023-01-11 14:22 | Emergency (ER) | payer SELFPAY | END 2023-01-11 15:42 | disposition left against medical advice (07) | LOC: MW.ED 14:22 | DX: Z53.21 Procedure and treatment not carried out due to patient leaving prior to being seen by health care provider (principal) ==

== ENCOUNTER 2023-08-12 14:17 | Emergency (ER) | payer SELFPAY ==
[2023-08-12] MEDS ORDERED: Sodium Chloride 0.9% 1,000 ML IV ONE (15:05)
[2023-08-12] MEDS ORDERED: Sodium Chloride 0.9% 10 ML Syringe FLUSH PRN (15:05)
[2023-08-12] MEDS ORDERED: Sodium Chloride 0.9% 2.5 ML Syringe FLUSH PRN (15:05)
[2023-08-12 15:22] LABS: BASOPHILS ABSOLUTE AUTO 0.05 K/uL (0.00-0.20); BASOPHILS PERCENT AUTO 0.6 % (0.0-1.0); EOSINOPHILS ABSOLUTE AUTO 0.25 K/uL (0.00-0.45); EOSINOPHILS PERCENT AUTO 2.8 % (0.0-6.0); HEMATOCRIT 41.2 % (42.0-52.0); HEMOGLOBIN 14.8 g/dL (14.0-18.0); IMMATURE GRAN ABSOLUTE AUTO 0.02 K/uL (0.00-0.05); IMMATURE GRAN PERCENT AUTO 0.2 % (0.0-0.4); LYMPHOCYTES ABSOLUTE AUTO 2.22 K/uL (1.00-4.80); LYMPHOCYTES PERCENT AUTO 25.3 % (24.0-44.0); MEAN CORPUSCULAR HEMOGLOBIN 30.6 pg (28.0-32.0); MEAN CORPUSCULAR HGB CONC 35.9 g/dL (32.0-36.0); MEAN CORPUSCULAR VOLUME 85.3 fL (83.0-99.0); MEAN PLATELET VOLUME 10.9 fL (9.4-12.4); MONOCYTES ABSOLUTE AUTO 0.61 K/uL (0.00-0.80); MONOCYTES PERCENT AUTO 6.9 % (0.0-8.0); NEUTROPHILS ABSOLUTE AUTO 5.64 K/uL (1.80-7.70); NEUTROPHILS PERCENT AUTO 64.2 % (41.0-71.0); PLATELET COUNT,PLT 221 K/uL (150-400); RED BLOOD CELL COUNT 4.83 M/uL (4.52-5.90); WHITE BLOOD CELL COUNT,WBC 8.79 K/uL (3.9-11.3)
[2023-08-12 15:34] LABS: INR 0.98 (0.86-1.11)
[2023-08-12 15:47] LABS: A/G RATIO 0.9 (0.9-1.6); ALBUMIN 3.9 g/dL (3.4-5.0); BILIRUBIN TOTAL 0.5 mg/dL (0.2-1.0); CALCIUM 8.9 mg/dL (8.5-10.1); CARBON DIOXIDE,CO2 28.8 mmol/L (21.0-32.0); CREATININE 1.1 mg/dL (0.8-1.3); EST CRCL DRUG DOSING (CG) 70.11 mL/min; POTASSIUM,K 3.8 mmol/L (3.5-5.1); PROTEIN TOTAL,TP 8.1 g/dL (6.4-8.2)
[2023-08-12] MEDS ORDERED: methylPREDNISolone Sodium Succinate 40 MG/1 ML SDV IVPUSH ONE (16:52)
[2023-08-12] MEDS ORDERED: diphenhydrAMINE 50 MG/ML SDV IVPUSH ONE (16:52)
[2023-08-12 19:17] VITALS: BP 162/89; PULSE 65
== END 2023-08-12 19:17 | disposition home or self-care (01) ==
LOC: MW.ED 14:17
DX: K80.20 Calculus of gallbladder without cholecystitis without obstruction (principal); E11.9 Type 2 diabetes mellitus without complications; Z79.84 Long term (current) use of oral hypoglycemic drugs
CPT/HCPCS: 36415; 74177; 80053; 83605; 83690; 85025; 85610; 96374; 96375; 99284; J1200; J2920; J3490; J7030

== ENCOUNTER 2024-08-06 06:15 | Day surgery (SDC) | payer BC ==
[2024-08-06] MEDS: Lactated Ringers 1,000 ML IV SCH (06:45)
[2024-08-06] MEDS ORDERED: Bupivacaine 0.25% 30 ML SDV ONE (07:25)
[2024-08-06] MEDS ORDERED: Lidocaine 1% 20 ML MDV ONE (07:25)
[2024-08-06] MEDS ORDERED: Propofol 200 MG/20 ML SDV ONE ×2 (07:34→08:10)
[2024-08-06] MEDS ORDERED: fentaNYL 250 MCG/5 ML SDV ONE (07:34)
[2024-08-06] MEDS ORDERED: Lidocaine 2% 11 ML Jelly Filled Syringe ONE (07:37)
[2024-08-06] MEDS ORDERED: ceFAZolin 2 GM Vial ONE (08:04)
[2024-08-06] MEDS ORDERED: Ketorolac 30 MG/ML SDV ONE (08:16)
[2024-08-06] MEDS ORDERED: Dexamethasone 4 MG/ML 5 ML MDV ONE (08:16)
[2024-08-06] MEDS ORDERED: Ondansetron 4 MG/2 ML SDV ONE (08:16)
[2024-08-06] MEDS ORDERED: Succinylcholine/Sod PF 100 MG/5 ML SYRINGE IV ONE (08:16)
[2024-08-06] MEDS ORDERED: ePHEDrine 50 MG/ML SDV ONE (08:28)
[2024-08-06] MEDS ORDERED: HYDROmorphone 1 MG/ML Syringe ONE (09:14)
[2024-08-06 13:07] VITALS: BP 137/74; PULSE 77
[2024-08-06] MEDS ORDERED: ceFAZolin 2 GM in Sodium Chloride 0.9% 50 ML IV ONE (14:39)
== END 2024-08-06 09:50 | disposition home or self-care (01) ==
LOC: MW.SDS 06:15
PROVIDERS: ATTEND Surgery
DX: Z12.11 Encounter for screening for malignant neoplasm of colon (principal); D12.2 Benign neoplasm of ascending colon; L72.0 Epidermal cyst; K62.89 Other specified diseases of anus and rectum; I10 Essential (primary) hypertension; E66.9 Obesity, unspecified; E11.9 Type 2 diabetes mellitus without complications; K42.9 Umbilical hernia without obstruction or gangrene; Z79.899 Other long term (current) drug therapy; Z79.84 Long term (current) use of oral hypoglycemic drugs; Z68.37 Body mass index [BMI] 37.0-37.9, adult; Z86.16 Personal history of COVID-19
CPT/HCPCS: 11404; 45380; A9270; J0131; J0330; J0665; J0690; J1100; J1171; J1885; J2405; J2704; J3010; J7120; 00811; J3490

== ENCOUNTER 2024-09-01 06:33 | Day surgery (SDC) | payer BC ==
[~2024-09-01 06:33] MED LIST: Acetaminophen 1,000 MG in Premix Bag 1 BAG IV SCH; ceFAZolin 2 GM in Sodium Chloride 0.9% 50 ML IV ONE
[2024-09-01] MEDS: Pregabalin 75 MG Cap PO SCH (07:00)
[2024-09-01] MEDS ORDERED: Bupivacaine 0.5% 30 ML SDV ONE (07:10)
[2024-09-01] MEDS ORDERED: fentaNYL 100 MCG/2 ML SDV ONE (07:16)
[2024-09-01] MEDS ORDERED: Propofol 200 MG/20 ML SDV ONE (07:16)
[2024-09-01] MEDS ORDERED: Water For Injection, Sterile 20 ML ONE (07:20)
[2024-09-01] MEDS ORDERED: dexmedeTOMIDine HCl 200 MCG/2 ML SDV ONE (07:20)
[2024-09-01] MEDS: Lactated Ringers 1,000 ML IV SCH (07:23)
[2024-09-01] MEDS ORDERED: Bupivacaine 0.5% 10 ML SDV ONE (07:25)
[2024-09-01] MEDS ORDERED: Bupivacaine 0.25% 30 ML SDV ONE (07:25)
[2024-09-01] MEDS ORDERED: HYDROmorphone 1 MG/ML Syringe IVPUSH PRN (07:32)
[2024-09-01] MEDS ORDERED: Morphine 2 MG/ML SYRINGE IVPUSH PRN (07:32)
[2024-09-01] MEDS ORDERED: Ondansetron 4 MG/2 ML SDV IVPUSH PRN (07:32)
[2024-09-01] MEDS ORDERED: Albuterol 0.083% 2.5 MG/3 ML Neb Soln NEB PRN (07:32)
[2024-09-01] MEDS ORDERED: Naloxone 0.4 MG/ML SDV IVPUSH PRN (07:32)
[2024-09-01] MEDS ORDERED: Phenylephrine HCl In 0.9% NaCl 1 MG/10 ML Syringe IVPUSH PRN (07:32)
[2024-09-01] MEDS ORDERED: Metoclopramide 10 MG/2 ML SDV IVPUSH PRN (07:32)
[2024-09-01] MEDS ORDERED: Ketamine HCL/NACL, ISO-OSM 50 MG/5 ML Syringe ONE (08:01)
[2024-09-01] MEDS ORDERED: Ondansetron 4 MG/2 ML SDV ONE (08:03)
[2024-09-01] MEDS ORDERED: Dexamethasone 4 MG/ML 5 ML MDV ONE (08:03)
[2024-09-01] MEDS ORDERED: ceFAZolin 2 GM Vial ONE (08:05)
[2024-09-01] MEDS ORDERED: Ketorolac 30 MG/ML SDV ONE (08:52)
[2024-09-01] MEDS: fentaNYL 50 MCG/ML SDV IVPUSH PRN (09:54)
[2024-09-01 12:04] VITALS: BP 108/62; PULSE 60
== END 2024-09-01 11:20 | disposition home or self-care (01) ==
LOC: MW.SDS 06:33
PROVIDERS: ATTEND Surgery
DX: K42.9 Umbilical hernia without obstruction or gangrene (principal); E11.9 Type 2 diabetes mellitus without complications; I10 Essential (primary) hypertension; Z87.891 Personal history of nicotine dependence; Z79.84 Long term (current) use of oral hypoglycemic drugs; Z79.899 Other long term (current) drug therapy
CPT/HCPCS: 49591; 64488; A9270; C1781; J0131; J0665; J0690; J1100; J1885; J2405; J2704; J3010; J7120; 00830; J3490